=== PATIENT | male | born 1935 | race Caucasian/White ===

== ENCOUNTER 2016-03-14 09:21 | Day surgery (SDC) | payer MEDICARE ==
[2016-03-08 13:32] VITALS: BMI 27.1
[2016-03-14 10:08] VITALS: TEMP 98.1
[2016-03-14] MEDS: LIDOCAINE 1% 20 ML VIAL (10MG/ML) FOR IV START INTRADERMA PRN ×2 (10:19→10:22)
[2016-03-14] MEDS: LACTATED RINGERS 1,000 ML IV SCH ×2 (10:19→10:22)
[2016-03-14] MEDS ORDERED: PROPOFOL 10 MG/ML 20 ML VIAL IV ONE (11:02)
[2016-03-14] MEDS ORDERED: LIDOCAINE 1% INJ 10MG/ML (20 ML MDV) ONE (11:02)
--- NOTE | 2016-03-14 11:47 | P.PCN ---
Date of Procedure: 03/14/16 Procedure(s) Performed: Procedure: 1. Esophagogastroduodenoscopy and biopsy. 2. Total colonoscopy. Preoperative diagnosis: History of Da Silva's esophagus and screening for colon neoplasia.. Postoperative diagnosis: 1. Small sliding hiatal hernia with no obvious esophagitis or Da Silva's esophagus. 2. Mild antral gastritis and mild duodenitis. 3. Sigmoid diverticulosis with no evidence of acute diverticulitis , strictures, polyps or cancer. Preparation: HalfLytely prep. Sedation: Was provided by anesthesia. Brief clinical history: The patient is a 81-year-old male who is referred for this evaluation for screening because of history of Da Silva's esophagus and history of polyps. His last colonoscopy may have been 12-13 years ago and his upper endoscopy was several years ago. The patient has been doing well with no significant complaints. Procedure: With the patient on his left lateral decubitus position and after informed consent and adequate sedation, I passed the Olympus-GIF 160 video upper endoscope through the cricopharyngeus down the esophagus. GE junction was around 40 cm from the incisors and there was a small sliding hiatal hernia. There was no erosions, ulcers, strictures or any evidence of Da Silva's esophagus. It is possible that his Da Silva's has regressed since his last evaluation. The endoscope was then passed into the stomach which was insufflated with air and inspected in detail including the retroflex view in the cardia. There was some mottling and erythema in the antrum but no ulcers or erosions. Pyloric channel did not show any ulcers. Duodenal bulb, post bulbar area and descending duodenum showed minimal erythema and minimal friability. I obtained biopsies from the antrum then the endoscope was withdrawn and I proceeded with the colonoscopy. Perianal area did not show any fissures or fistulas. There were no masses felt on digital rectal examination. The Olympus CFQ 160L video colonoscope was then inserted in the rectum in the usual fashion and advanced to the cecum. There were several small diverticular orifices seen scattered in the sigmoid but I saw no evidence of acute diverticulitis or strictures. No polyps or tumors were seen. I retroflexed endoscope in the rectum before the endoscope was withdrawn. Low-grade internal hemorrhoids were noted but there was no bleeding. The patient tolerated the procedure well. Plan: The patient was reassured. Will await biopsy results. Discussed dietary measures. At his age I did not recommend further surveillance or screening and that can be kept as a contingency based on his course. He will follow up with you as planned.
[2016-03-14 12:05] VITALS: BP 120/77; PULSE 58; RESP 18
== END 2016-03-14 12:31 | disposition home or self-care (01) ==
LOC: ORWHC2ENDO 09:21
DX: Z12.11 Encounter for screening for malignant neoplasm of colon (principal); K44.9 Diaphragmatic hernia without obstruction or gangrene; K29.50 Unspecified chronic gastritis without bleeding; K29.80 Duodenitis without bleeding; K57.30 Diverticulosis of large intestine without perforation or abscess without bleeding; Z88.5 Allergy status to narcotic agent; I10 Essential (primary) hypertension; Z85.46 Personal history of malignant neoplasm of prostate; Z79.82 Long term (current) use of aspirin; Z79.899 Other long term (current) drug therapy; Z86.010 Personal history of colon polyps
CPT/HCPCS: 88305; 88342; 43239; J2001; J2704; G0105; 99153

== ENCOUNTER → 2017-03-22 | Outpatient (CLI) | payer MEDICARE ==
--- NOTE | 2017-03-23 13:24 | MR ---
EXAMINATION TYPE: MR brain wo/w con DATE OF EXAM: 03/22/2017 COMPARISON: NONE HISTORY: Retrograde amnesia CONTRAST: Performed utilizing 7 mL intravenous Gadavist gadolinium contrast. TECHNIQUE: Multiplanar, multiecho imaging on a 3.0 Isatu magnet is performed through the brain. Stud y is performed within 24 hours of arrival to the hospital. The craniovertebral junction is normal. The pituitary is normal. Diffusion-weighted imaging is performed. No abnormal hyperintensity is present to suggest an acute i ntracranial infarct or acute ischemic change. There is increased signal within the posterior inferior right cerebellum compatible with prior infarc t.. Ventricular white matter hyperintensity is present compatible with hypervascular ischemic changes . Ventricles are prominent for the patient age. There is milder prominence of the sulci. No temporal ho rn dilatation is evident suggest hydrocephalus. No abnormal enhancement is evident. IMPRESSIONS: 1. Chronic appearing white matter ischemic type changes with atrophy. 2. 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
== END | disposition home or self-care (01) ==
LOC: RADMRIMAIN 09:07
PROVIDERS: ATTEND Family Medicine
DX: G31.9 Degenerative disease of nervous system, unspecified (principal); I63.9 Cerebral infarction, unspecified
CPT/HCPCS: 70553; A9581

== ENCOUNTER 2019-08-30 22:34 | Inpatient (IN) | payer MEDICARE, OTHER ==
[2019-08-30] MEDS ORDERED: SODIUM CHLORIDE 0.9% 500 ML 500 ML IV ONE (23:36)
[2019-08-30 23:49] LABS: Basophils # (A) 0.1 k/uL (0-0.2); Basophils % (A) 0 %; Eosinophils # (A) 0.2 k/uL (0-0.7); Eosinophils % (A) 1 %; HCT 43.9 % (39.0-53.0); HGB 14.6 gm/dL (13.0-17.5); Lymphocytes # (A) 1.4 k/uL (1.0-4.8); Lymphocytes % (A) 6 %; MCHC 33.2 g/dL (31.0-37.0); MCV 93.5 fL (80.0-100.0); Mean Platelet Volume 7.8; Monocytes # (A) 0.7 k/uL (0-1.0); Monocytes % (A) 3 %; Neutrophils # (A) 21.1 k/uL (1.3-7.7); Neutrophils % (A) 90 %; Platelet Count 634 k/uL (150-450); WBC 23.6 k/uL (3.8-10.6)
[2019-08-31 00:22] LABS: Albumin 3.5 g/dL (3.5-5.0); Calcium 10.1 mg/dL (8.4-10.2); Potassium 5.4 mmol/L (3.5-5.1); Total Bilirubin 0.6 mg/dL (0.2-1.3); Total Protein 7.8 g/dL (6.3-8.2)
--- NOTE | 2019-08-31 00:39 | XR ---
EXAMINATION TYPE: XR chest 1V portable DATE OF EXAM: 08/31/2019 COMPARISON: NONE HISTORY: Fall. Pain. TECHNIQUE: Single view FINDINGS: There is some patchy infiltrates in the lower lobes bilaterally. Heart size is normal. Ther e are no hilar masses. Costophrenic angles are clear. Thoracic aorta is atheromatous. Bony thorax is intact. IMPRESSION: Bilateral lower lobe mild pneumonia. No heart failure seen. Normal heart.
--- NOTE | 2019-08-31 00:41 | XR ---
EXAMINATION TYPE: XR pelvis AP view DATE OF EXAM: 08/31/2019 COMPARISON: NONE HISTORY: Fall. Pain. TECHNIQUE: Single view FINDINGS: The pelvic ring is intact. Proximal femurs are intact. There are multiple surgical clips in the pelvis bilaterally. Sacroiliac joints are intact. IMPRESSION: Negative exam. No pelvic fracture seen. No evidence of hip fracture.
--- NOTE | 2019-08-31 00:44 | CT ---
EXAMINATION TYPE: CT brain cspine wo con DATE OF EXAM: 08/31/2019 COMPARISON: None HISTORY: Fall. Pain. CT DLP: mGycm Automated exposure control for dose reduction was used. CT brain without contrast. CT scan cervical spine from the skull base to T1 vertebra without contrast . FINDINGS: There is diffuse cerebral cortical atrophy. There is enlargement of the ventricles. There is moderate patchy hypodensity in the periventricular white matter. There is old cortical infarct involving the medial right cerebellar hemisphere. This measures 2.5 cm. There is no midline shift. There is no sign of intracranial hemorrhage. The calvarium is intact. There is some straightening of the cervical spine. There is mild disc space narrowing at C4-5 C5-6 wi th mild spurring. Facet joints are intact. The skull base is intact. There is no evidence of cervical spine fracture. Prevertebral soft tissues show enlarged air-filled cervical esophagus. There is no e vidence of a soft tissue mass. IMPRESSION: Old right cerebellar hemisphere infarct. Cerebral atrophy and chronic small vessel ischemia. No thomas e compared to old MR scan of 03/22/2017. Mild spondylotic changes in the cervical spine. No fracture. Enlarged air-filled esophagus could rela te to esophageal dysfunction.
--- NOTE | 2019-08-31 00:46 | ED ---
General Adult HPI - General Chief complaint: Fall Stated complaint: Fall Time Seen by Provider: 08/30/19 23:02 Source: EMS Mode of arrival: EMS Limitations: altered mental status - History of Present Illness Initial comments: Patient is a pleasantly demented 84-year-old male who presents to the emergency department via ambulance for evaluation after a fall at his [place] [facility]. According to caregivers the patient was attempting to stand, they were assisting him when he fell onto his right side he did not his head he did not lose consciousness and no obvious injuries but per their protocol he was sent here for evaluation. arrived at bedside she has not seen the patient due to isolation precautions due to per coronavirus. expresses concern about a significant weight change and advance meant of his dementia, today he does not even recognize his which prior to coronavirus he could. reports that in early July the patient was hospitalized for pneumonia, his weakness worsened during hospitalization he was discharged in a [place] [facility] and she has not seen him since then. She reports he's had significant weight loss and advancement of his dementia since then. She states that she doesn't know how he could've fallen from standing as he was unable to stand when he was previously in the hospital. - Related Data Home Medications Medication Instructions Recorded Confirmed Aspirin [Adult Low Dose Aspirin EC] 81 mg PO DAILY 03/08/16 03/14/16 Carvedilol 6.25 mg PO BID 03/08/16 03/14/16 DULoxetine HCL [Cymbalta] 60 mg PO DAILY 03/08/16 03/14/16 Donepezil HCl 10 mg PO DAILY 03/08/16 03/14/16 Ibuprofen [Motrin] 800 mg PO Q8HR PRN 03/08/16 03/14/16 Oxybutynin Chloride [Ditropan XL] 10 mg PO DAILY 03/08/16 03/14/16 amLODIPine BESYLATE [Amlodipine 10 mg OP DAILY 03/08/16 03/14/16 Besylate] Allergies Allergy/AdvReac Type Severity Reaction Status Date / Time codeine AdvReac Unknown Verified 03/14/16 10:07 Review of Systems ROS Statement: Those systems with pertinent positive or pertinent negative responses have been documented in the HPI. ROS Other: All systems not noted in ROS Statement are negative. Past Medical History Past Medical History: Cancer, Hypertension, Memory Impairment Additional Past Medical History / Comment(s): PROSTATE CANCER History of Any Multi-Drug Resistant Organisms: None Reported Past Surgical History: Appendectomy, Prostate Surgery Additional Past Surgical History / Comment(s): PROSTATECTOMY. COLONOSCOPY. HX LOW PLATELETS Past Anesthesia/Blood Transfusion Reactions: No Reported Reaction Past Psychological History: Depression Past Alcohol Use History: None Reported Past Drug Use History: None Reported - Past Family History Mother Family Medical History: No Reported History General Exam Limitations: altered mental status (Dementia) General appearance: alert Head exam: Present: atraumatic, normocephalic, other (Temportal wasting) Eye exam: Present: PERRL (Because the patient is A&Ox3, has no focal neurologic deficits, no posterior midline c-spine tenderness to palpation, no evidence of intoxication and has no painful distracting injuries there is no need to obtain radiographic studies to evaluate the cervical spine.). Absent: scleral icterus ENT exam: Present: mucous membranes dry Neck exam: Absent: tenderness Respiratory exam: Absent: respiratory distress Cardiovascular Exam: Present: regular rate GI/Abdominal exam: Present: soft exam: Present: normal inspection Extremities exam: Present: normal capillary refill, other (contracted extremities). Absent: tenderness, pedal edema Neurological exam: Present: alert (at baseline per [place] [facility] staff) Psychiatric exam: Present: other (dementia, does not recognize surroundings or ) Skin exam: Present: warm, dry, intact Course Vital Signs 08/30/19 08/31/19 22:36 01:00 Temperature 97.4 F L Pulse Rate 79 91 Respiratory 18 18 Rate Blood Pressure 124/81 128/73 O2 Sat by Pulse 96 93 L Oximetry Medical Decision Making - Medical Decision Making The patient was seen and evaluated history is obtained from EMS and at bedside 84-year-old male with advancing dementia had a witnessed fall at the [place] [facility] today and was sent to the ER for evaluation Labs and imaging were obtained Head CT pelvis x-ray were unremarkable Chest x-ray concerning for bilateral lower lobe pneumonia, the patient does have a nonproductive cough, patient is too weak to have a very strong cough but does persistently cough in the exam room Labs resulted with leukocytosis, evidence of dehydration with elevated BUNs and creatinines mild hyperkalemia IV fluid rehydration was ordered Antibiotics ordered Plan was discussed with the patient's at bedside who confirms the patient has advanced directives and wouldn't want to be DO NOT RESUSCITATE but does consent to IV antibiotics and hospitalization The patient will be hospitalized for generalized weakness, lower lobe pneumonia, acute kidney injury - Lab Data Result diagrams: 08/30/19 23:34 08/30/19 23:34 Lab Results 08/30/19 08/30/19 08/31/19 Range/Units 23:34 23:34 00:19 WBC 23.6 H (3.8-10.6) k/uL RBC 4.70 (4.30-5.90) m/uL Hgb 14.6 (13.0-17.5) gm/dL Hct 43.9 (39.0-53.0) % MCV 93.5 (80.0-100.0) fL MCH 31.0 (25.0-35.0) pg MCHC 33.2 (31.0-37.0) g/dL RDW 13.0 (11.5-15.5) % Plt Count 634 H (150-450) k/uL Neutrophils % 90 % Lymphocytes % 6 % Monocytes % 3 % Eosinophils % 1 % Basophils % 0 % Neutrophils # 21.1 H (1.3-7.7) k/uL Lymphocytes # 1.4 (1.0-4.8) k/uL Monocytes # 0.7 (0-1.0) k/uL Eosinophils # 0.2 (0-0.7) k/uL Basophils # 0.1 (0-0.2) k/uL Sodium 141 (137-145) mmol/L Potassium 5.4 H (3.5-5.1) mmol/L Chloride 109 H (98-107) mmol/L Carbon Dioxide 22 (22-30) mmol/L Anion Gap 10 mmol/L BUN 68 H (9-20) mg/dL Creatinine 1.76 H (0.66-1.25) mg/dL Est GFR (CKD-EPI)AfAm 41 (>60 ml/min/1.73 sqM) Est GFR (CKD-EPI)NonAf 35 (>60 ml/min/1.73 sqM) Glucose 119 H (74-99) mg/dL Calcium 10.1 (8.4-10.2) mg/dL Total Bilirubin 0.6 (0.2-1.3) mg/dL AST 34 (17-59) U/L ALT 19 (4-49) U/L Alkaline Phosphatase 215 H (38-126) U/L Total Protein 7.8 (6.3-8.2) g/dL Albumin 3.5 (3.5-5.0) g/dL Urine Color Yellow Urine Appearance Clear (Clear) Urine pH 5.0 (5.0-8.0) Ur Specific [place] 1.020 (1.001-1.035) Urine Protein Negative (Negative) Urine Glucose (UA) Negative (Negative) Urine Ketones Negative (Negative) Urine Blood Negative (Negative) Urine Nitrite Negative (Negative) Urine Bilirubin Negative (Negative) Urine Urobilinogen <2.0 (<2.0) mg/dL Ur Leukocyte Esterase Negative (Negative) Disposition Clinical Impression: Pneumonia, Generalized weakness, Cachexia, Fall, Acute kidney injury Disposition: ADMITTED IP TO THIS [facility] Condition: Serious Referrals: Blayne Kramer DO [Primary Care Provider] - 1-2 days
[2019-08-31 00:51] LABS: Appearance,Urine Clear (Clear); Bilirubin,Urine Negative (Negative); Blood,Urine Negative (Negative); Color,Urine Yellow; Glucose,Urine (UA) Negative (Negative); Ketones,Urine Negative (Negative); Leukocyte Esterase,Urine Negative (Negative); Nitrite,Urine Negative (Negative); Protein,Urine Negative (Negative); Urobilinogen,Urine <2.0 mg/dL (<2.0)
[2019-08-31] MEDS ORDERED: SODIUM CHLORIDE 0.9% 500 ML 500 ML IV ONE (01:48)
[2019-08-31] MEDS ORDERED: NALOXONE 0.4 MG/ML 1 ML VIAL IV PRN (02:04)
[2019-08-31] MEDS: SODIUM CHLORIDE 0.9% 1,000 ML IV SCH ×2 (02:46→23:27)
[2019-08-31] MEDS ORDERED: ALBUTEROL NEBULIZED 2.5 MG/3 ML INHALATION PRN (13:14)
[2019-08-31] MEDS ORDERED: ACETAMINOPHEN TAB 325 MG TAB PO PRN (13:14)
--- NOTE | 2019-08-31 13:51 | P.HPIM ---
History of Present Illness 84-year-old male was brought in from [facility] as a patient had a fall. Patient agrees, underwent workup which showed leukocytosis and there is possible pneumonia in both the lungs inferior lung ortiz predominantly in the left lower lung ortiz. Patient apparently has a dementia which has been getting worse patient use to recognize his before his admission to subacute [facility]. Ht patient cannot recognize his either patient is presently alert oriented 1 be drowsy and about to go to bed. Unable to obtain any kind of history from the patient patient doesn't have any fever. Review of Systems Unable to obtain due to his clinical condition Past Medical History Past Medical History: Cancer, COPD, Dementia, Hypertension, Memory Impairment, Pneumonia Additional Past Medical History / Comment(s): Pt had recentl pn eumonia/sepsis/weakness 07/2019. Other hx: Prostate cancer with surgery, Da Silva's esophagus, duodenitis, mild gastritis, hiatal hernia, diverticular disease, hemorrhoids, past dysphagia/dilations/peg tube since removed, ITP, idiopathic purpura, low platlets, R pneumothorax, nephrolithiasis/ureteral stents, occasional lower back pain History of Any Multi-Drug Resistant Organisms: None Reported Past Surgical History: Appendectomy, Orthopedic Surgery, Prostate Surgery Additional Past Surgical History / Comment(s): Prostatectomy, EGDs/dilations, colonoscopy, peg tube-since removed, L knee arthroscopy, ureteral stents, bilateral cataract removals Past Anesthesia/Blood Transfusion Reactions: No Reported Reaction Smoking Status: Light tobacco smoker - Past Family History Mother Family Medical History: No Reported History Father Family Medical History: Myocardial Infarction (IA) Additional Family Medical History / Comment(s): Father from a IA at the age of 52 yrs. Medications and Allergies Home Medications Medication Instructions Recorded Confirmed Type DULoxetine HCL [Cymbalta] 60 mg PO DAILY 03/08/16 08/31/19 History Oxybutynin Chloride [Ditropan XL] 10 mg PO DAILY 03/08/16 08/31/19 History Acetaminophen Tab [Tylenol] 650 mg PO Q6H PRN MDD 3 GM 08/31/19 08/31/19 History Albuterol Nebulized [Ventolin 2.5 mg INHALATION RT-Q6H PRN 08/31/19 08/31/19 History Nebulized] Carvedilol [Coreg] 3.125 mg PO BID 08/31/19 08/31/19 History LORazepam [Ativan] 1 mg PO BID 08/31/19 08/31/19 History QUEtiapine [SEROquel] 25 mg PO HS 08/31/19 08/31/19 History guaiFENesin [Mucinex] 600 mg PO BID@0800,2000 08/31/19 08/31/19 History Allergies Allergy/AdvReac Type Severity Reaction Status Date / Time codeine Allergy Unknown Verified 08/31/19 06:41 Physical Exam Vitals: Vital Signs Temp Pulse Pulse Resp BP BP Pulse Ox 08/31/19 07:00 98.5 F 90 18 138/91 96 08/31/19 06:00 97.8 F 96 18 125/66 94 L 08/31/19 01:00 91 18 128/73 93 L 08/30/19 22:36 97.4 F L 79 18 124/81 96 Intake and Output 08/30/19 08/31/19 08/31/19 22:59 06:59 14:59 Output Total 20 Balance -20 Output: Urine 20 Straight 20 Other: Voiding Method Diaper Weight 55.792 kg 55.792 kg PHYSICAL EXAMINATION: GENERAL: The patient is drowsy and oriented x1, not in any acute distress. Thin built HEENT: Pupils are round and equally reacting to light. EOMI. No scleral icterus. No conjunctival pallor. Normocephalic, atraumatic. No pharyngeal erythema. No thyromegaly. Dry mucous membranes CARDIOVASCULAR: S1 and S2 present. No murmurs, rubs, or gallops. PULMONARY: Chest is clear to auscultation, no wheezing or crackles. ABDOMEN: Soft, nontender, nondistended, normoactive bowel sounds. No palpable organomegaly. MUSCULOSKELETAL: No joint swelling or deformity. EXTREMITIES: No cyanosis, clubbing, or pedal edema. NEUROLOGICAL: Gross neurological examination did not reveal any focal deficits. SKIN: No rashes. Results CBC & Chem 7: 08/30/19 23:34 08/30/19 23:34 Labs: Abnormal Lab Results - Last 24 Hours (Table) 08/30/19 08/30/19 Range/Units 23:34 23:34 WBC 23.6 H (3.8-10.6) k/uL Plt Count 634 H (150-450) k/uL Neutrophils # 21.1 H (1.3-7.7) k/uL Potassium 5.4 H (3.5-5.1) mmol/L Chloride 109 H (98-107) mmol/L BUN 68 H (9-20) mg/dL Creatinine 1.76 H (0.66-1.25) mg/dL Glucose 119 H (74-99) mg/dL Alkaline Phosphatase 215 H (38-126) U/L Thrombosis Risk Factor Assmnt - Choose All That Apply Any of the Below Risk Factors Present?: Yes Each Factor Represents 1 point: Abnormal pulmonary function (COPD), Serious lung disease incl. pneumonia (< 1month) Other Risk Factors: Yes Each Risk Factor Represents 2 Points: Malignancy Each Risk Factor Represents 3 Points: Age 75 years or older Other congenital or acquired thrombophilia - If yes, enter type in comment: No Thrombosis Risk Factor Assessment Total Risk Factor Score: 7 Thrombosis Risk Factor Assessment Level: High Risk Assessment and Plan Plan: -Possible left encephalopathy may be metabolic encephalopathy and toxic encephal opathy: There is a possibility of pneumonia patient was started on an antibiotics will be discontinued patient is significantly dehydrated clinically because of poor Intake because of advancing dementia patient was started on IV fluids. -Possible pneumonia for which patient was started on Rocephin and azithromycin. -Dementia either vascular senile dementia: Worsening dementia. Supportive care avoid benzo resumes, barbiturates and opiates, anticollagen medications. Ativan will be discontinued. Patient will be started on Seroquel on as-needed basis for agitation if at all he is any during this hospital physician. -COPD without any acute exacerbation -Hypertension -Prostate cancer status post surgery -Depression Due to prophylaxis as the penis heparin GI prophylaxis with Pepcid
[2019-08-31] MEDS: METOPROLOL TARTRATE 25 MG TAB PO SCH (20:28)
[2019-08-31] MEDS: HEPARIN SODIUM,PORCINE 5,000 UNIT/ML 1 ML VIAL SQ SCH (20:49)
[2019-08-31] MEDS: FAMOTIDINE 20 MG TAB PO SCH (20:49)
[2019-08-31] MEDS: guaiFENesin 600 MG TABLET.ER PO SCH (20:49)
[2019-09-01] MEDS: QUEtiapine 25 MG TAB PO PRN ×2 (01:14→21:01)
[2019-09-01 07:16] LABS: HGB 12.1 gm/dL (13.0-17.5); MCH 29.3 pg (25.0-35.0); MCHC 31.7 g/dL (31.0-37.0); MCV 92.2 fL (80.0-100.0); Mean Platelet Volume 7.8; Platelet Count 512 k/uL (150-450); RBC 4.12 m/uL (4.30-5.90); RDW 13.4 % (11.5-15.5); WBC 11.5 k/uL (3.8-10.6)
[2019-09-01 07:22] LABS: African American GFR (CKD) >90 (>60 ml/min/1.73 sqM); Anion Gap 6 mmol/L; Blood Urea Nitrogen 33 mg/dL (9-20); Calcium 8.2 mg/dL (8.4-10.2); Carbon Dioxide 18 mmol/L (22-30); Chloride 122 mmol/L (98-107); Glucose 83 mg/dL (74-99); Non-African American GFR(CKD) 79 (>60 ml/min/1.73 sqM); Potassium 4.5 mmol/L (3.5-5.1); Sodium 146 mmol/L (137-145)
[2019-09-01] MEDS: METOPROLOL TARTRATE 25 MG TAB PO SCH ×2 (07:59→21:01)
[2019-09-01] MEDS: guaiFENesin 600 MG TABLET.ER PO SCH ×2 (07:59→21:01)
[2019-09-01] MEDS: FAMOTIDINE 20 MG TAB PO SCH ×2 (07:59→21:01)
[2019-09-01] MEDS: DULoxetine HCL 60 MG CAPSULE.DR PO SCH (07:59)
[2019-09-01] MEDS: AZITHROMYCIN 500 MG TAB PO SCH (08:00)
[2019-09-01] MEDS: HEPARIN SODIUM,PORCINE 5,000 UNIT/ML 1 ML VIAL SQ SCH ×2 (08:02→21:01)
[2019-09-01] MEDS: SODIUM CHLORIDE 0.9% 1,000 ML IV SCH (08:03)
[2019-09-01 11:19] VITALS: BMI 19.3
--- NOTE | 2019-09-01 12:38 | CDI ---
Documentation Clarification Form Date: 09/01/2019 11:58:56 AM From: Bridget Mohamud RN CCDS Admit Date: 08/31/2019 02:04:00 AM Patient Name: Fly Nguyen Visit Number: [id number] Discharge Date: ATTENTION: The Clinical Documentation Specialists (CDI) and [facility] Coding Staff appreciate your assistance in clarifying documentation. Please respond to the clarification below the line at the bottom and electronically sign. The CDI & [facility] Coding staff will review the response and follow-up if needed. Please note: Queries are made part of the Legal Health Record. If you have any questions, please contact the author of this message via ITS. Dr. Emelyn Quinones 08/30 in ED Note reported significant weight loss and advancement of his dementia History/Risk Factors: 84-year-old male presents to the ED from [facility] after a fall per protocol. Being treated for Pneumonia with Rocephin Iv and Zithromax Po. Medical History Dementia; COPD; HTN and Memory Impairment Clinical Indicators: 08/29 Labs: Wbc 23.6; Plt 634; K 5.4; BUN 68; Cr 1.76; Glucose 119; Current BMI: 19.3 Height 5 ft 7in 08/31 Nursing assessment: Muscle tone weak, movement normal, muscle strength fair. Activity: Bedrest, HOB 08/31 Nutrition Assessment: From Dietary Consult Intake: Poor; Percent Consumed 0-25%; Dysphagia Level 1: pureed, aspiration precautions, no straws; 1:1 supervision. Physical findings: Underweight Nutritional Diagnosis intake: inadequate oral intake. Clinical Diagnosis: Underweight related to poor oral intake with advanced age, dementia, BMI 19.3 kg/m2. 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 Supplements: Magic Cups TID Kcal /Serving 290. Protein serving 9 Diet Dysphagia I, pureed, Texture modified diet, Monitor po intake. In your professional opinion, can you please clarify if these findings signify one of the following conditions? Severe Protein-Calorie Malnutrition Other condition, please specify Unable to determine (Last Revision: August 2018) Moderate Protein-Calorie Malnutrition MTDD
--- NOTE | 2019-09-01 13:24 | XR ---
EXAMINATION TYPE: XR chest 1V DATE OF EXAM: 09/01/2019 HISTORY: Shortness of breath. COMPARISON: 08/30/2019 TECHNIQUE: Single view of the chest is submitted. FINDINGS: Demonstrated are scattered senescent parenchymal change. Basilar infiltrates persist. Correlate for pneumonia. The heart is stable. Hilar and mediastinal structures are within normal limits. Degenerative changes are seen of the dorsal spine. IMPRESSION: 1. Basilar infiltrates persist. Correlate for pneumonia.
--- NOTE | 2019-09-01 15:18 | P.PN ---
Subjective 84-year-old male was brought in from retirement as a patient had a fall. Patient agrees, underwent workup which showed leukocytosis and there is possible pneumonia in both the lungs inferior lung ortiz predominantly in the left lower lung ortiz. Patient apparently has a dementia which has been getting worse patient use to recognize his before his admission to subacute [facility]. Ht patient cannot recognize his either patient is presently alert oriented 1 be drowsy and about to go to bed. Unable to obtain any kind of history from the patient patient doesn't have any fever. 09/01/2019 Patient has advanced dementia patient has not been eating or drinking a patient prognosis is extremely poor and his white blood cell count and dehydration improved patient is a hyponatremic and hyperchloremia because of which IV fluids will be discontinued but patient is expected to get dehydrated and expected to have frequent pneumonias down the line area and same thing was discussed with the family by his . Will consult hospice which is a more appropriate care for him. Patient had agitation episodes still has a sitter. Patient is on Seroquel on as-needed basis will increase the dose of Seroquel to 37.5 as needed for agitation. Patient does open eyes does see is doesn't answer much of the questions. Review of systems unable to obtain due to his clinical condition All inpatient medications were reviewed and appropriate changes in these medications as dictated in the interval history and assessment and plan. Objective - Vital Signs Vital signs: Vital Signs Temp 97.9 F 09/01/19 07:00 Pulse 73 09/01/19 07:00 Resp 17 09/01/19 08:00 BP 145/74 09/01/19 07:00 Pulse Ox 90 L 09/01/19 07:00 Intake & Output 08/31/19 09/01/19 09/01/19 18:59 06:59 18:59 Intake Total 400 Balance 400 Weight 55.792 kg 55.792 kg Intake: Intake, IV Titration 400 Amount cefTRIAXone 1 gm In 400 Sodium Chloride 0.9% 50 ml @ 100 mls/hr IVPB Q24HR [facility] Rx#:[id number] Other: Voiding Method Diaper Diaper Diaper # Voids 3 2 - Labs CBC & Chem 7: 09/01/19 06:50 09/01/19 06:50 Labs: Abnormal Lab Results - Last 24 Hours (Table) 07/15/20 07/15/20 Range/Units 06:50 06:50 WBC 11.5 H (3.8-10.6) k/uL RBC 4.12 L (4.30-5.90) m/uL Hgb 12.1 L (13.0-17.5) gm/dL Hct 38.0 L (39.0-53.0) % Plt Count 512 H (150-450) k/uL Sodium 146 H (137-145) mmol/L Chloride 122 H (98-107) mmol/L Carbon Dioxide 18 L (22-30) mmol/L BUN 33 H (9-20) mg/dL Calcium 8.2 L (8.4-10.2) mg/dL
[2019-09-01] MEDS ORDERED: SODIUM CHLORIDE 0.45% 1,000 ML IV SCH (16:00)
[2019-09-02] MEDS: FAMOTIDINE 20 MG TAB PO SCH (07:25)
[2019-09-02] MEDS: DULoxetine HCL 60 MG CAPSULE.DR PO SCH (07:25)
[2019-09-02] MEDS: guaiFENesin 600 MG TABLET.ER PO SCH (07:25)
[2019-09-02] MEDS: AZITHROMYCIN 500 MG TAB PO SCH (07:25)
[2019-09-02] MEDS: METOPROLOL TARTRATE 25 MG TAB PO SCH (07:26)
[2019-09-02] MEDS: HEPARIN SODIUM,PORCINE 5,000 UNIT/ML 1 ML VIAL SQ SCH (07:26)
--- NOTE | 2019-09-02 12:50 | P.DS ---
Providers Date of admission: 08/31/19 02:04 Expected date of discharge: 09/02/19 Attending physician: Moses Nuñez MD Primary care physician: Blayne Kramer [facility] Course: Final diagnosis -Altered mental status is mostly secondary to advancing dementia rather than delirium although patient may have a mild component of metabolic and toxic encephalopathy. -Covid 19 ruled out, testing was negative -Moderate protein calorie malnutrition due to poor oral intake with a BMI of 19.3 -Dehydration and acute renal failure -Possible pneumonia -Dementia either vascular or senile dementia: Worsening dementia -COPD without any acute exacerbation -Hypertension -Prostate cancer status post surgery -Depression -DVT prophylaxis -GI prophylaxis Discharge disposition Patient is being discharged in a stable condition with guarded prognosis to [facility] as he is a resident there. Patient will follow-up with Dr. Kramer upon discharge. Patient will continue with a short course of oral antibiotics in the form of Zithromax along with Ceftin for the next 3 days to complete a course. Family to discuss in the outpatient setting about possible hospice. Total time taken is 35 minutes. History of present illness This is an 84-year-old male who was [facility] and was being closely monitored. Patient was also seen and evaluated for possible pneumonia in both lungs predominantly on the left lower lung and was started on antibiotics. Patient will continue a short course of oral antibiotics for the next 3 days to complete the course. Patient also had some leukocytosis which is improving. Family to discuss about possible hospice in the outpatient setting. Patient was having some intermittent periods of agitation and will continue his Seroquel as needed for this. Patient's oral intake continues to be very poor and needs constant encouragement along with 1:1 supervision and aspiration precautions. Head of the bed should be elevated 45. Currently no reports of chest pain, worsening shortness of breath, or palpitations. Patient is afebrile. No reports of nausea or vomiting and patient is tolerating diet. Patient has poor oral intake and needs encouragement frequently with meals. During hospitalization patient underwent Covid 19 testing and was negative. Guarded prognosis. On exam vital signs are stable. Temp is 97.8F, pulse is 57, respirations are 16, blood pressure is 125/68, oxygen saturation is 94% on room air. Cardio S1, S2 are muffled. Respiratory shows diminished breath sounds at the bases with no wheezing or rhonchi noted. Abdomen is soft and nontender. Nervous system shows mild diffuse weakness. Please refer to medication reconciliation sheet for a list of medications. Patient Condition at Discharge: Fair Plan - Discharge Summary Discharge Rx Participant: No New Discharge Prescriptions: New Cefuroxime Axetil [Ceftin] 500 mg PO BID 3 Days #6 tab Metoprolol Tartrate [Lopressor] 25 mg PO BID tab Famotidine [Pepcid] 20 mg PO BID tab Azithromycin [Zithromax] 500 mg PO DAILY 4 Days #4 tab Continue Oxybutynin Chloride [Ditropan XL] 10 mg PO DAILY DULoxetine HCL [Cymbalta] 60 mg PO DAILY Albuterol Nebulized [Ventolin Nebulized] 2.5 mg INHALATION RT-Q6H PRN PRN Reason: Shortness Of Breath Acetaminophen Tab [Tylenol] 650 mg PO Q6H PRN MDD 3 GM PRN Reason: Pain guaiFENesin [Mucinex] 600 mg PO BID@799,1999 QUEtiapine [SEROquel] 25 mg PO HS Discontinued LORazepam [Ativan] 1 mg PO BID Carvedilol [Coreg] 3.125 mg PO BID Discharge Medication List DULoxetine HCL [Cymbalta] 60 mg PO DAILY 03/08/16 [History] Oxybutynin Chloride [Ditropan XL] 10 mg PO DAILY 03/08/16 [History] Acetaminophen Tab [Tylenol] 650 mg PO Q6H PRN MDD 3 GM 08/31/19 [History] Albuterol Nebulized [Ventolin Nebulized] 2.5 mg INHALATION RT-Q6H PRN 08/31/19 [History] QUEtiapine [SEROquel] 25 mg PO HS 08/31/19 [History] guaiFENesin [Mucinex] 600 mg PO BID@799,199908/31/19 [History] Azithromycin [Zithromax] 500 mg PO DAILY 4 Days #4 tab 09/02/19 [Rx] Cefuroxime Axetil [Ceftin] 500 mg PO BID 3 Days #6 tab 09/02/19 [Rx] Famotidine [Pepcid] 20 mg PO BID tab 09/02/19 [Rx] Metoprolol Tartrate [Lopressor] 25 mg PO BID tab 09/02/19 [Rx] Follow up Appointment(s)/Referral(s): Blayne Kramer DO [Primary Care Provider] - 1-2 days [employer] Shila Geller, [NON-STAFF] - As Needed Activity/Diet/Wound Care/Special Instructions: Patient is returning to [facility] Activity as tolerated Continue current diet of dysphagia level I pured with no straws, one to one supervision, aspiration precautions Keep head of the bed elevated 45 Family to discuss further with hospice in the outpatient setting Discharge Disposition: TRANSFER TO SNF/ECF
[2019-09-02 14:06] VITALS: BP 122/80; PULSE 54; RESP 18; TEMP 98
== END 2019-09-02 15:45 | DRG 193 ==
LOC: EC 22:34 → 4SSUR 08-31 02:04
PROVIDERS: ADMIT Internal Medicine; ATTEND Internal Medicine
DX: J18.9 Pneumonia, unspecified organism (principal); G92 Toxic encephalopathy; E44.0 Moderate protein-calorie malnutrition; R64 Cachexia; N17.9 Acute kidney failure, unspecified; D69.3 Immune thrombocytopenic purpura; E87.0 Hyperosmolality and hypernatremia; F03.91 Unspecified dementia, unspecified severity, with behavioral disturbance; J44.0 Chronic obstructive pulmonary disease with (acute) lower respiratory infection; Z68.1 Body mass index [BMI] 19.9 or less, adult; Z11.59 Encounter for screening for other viral diseases; E87.8 Other disorders of electrolyte and fluid balance, not elsewhere classified; Z66 Do not resuscitate; F32.9 Major depressive disorder, single episode, unspecified; I10 Essential (primary) hypertension; E87.5 Hyperkalemia; E86.0 Dehydration; K22.70 Barrett's esophagus without dysplasia; R13.10 Dysphagia, unspecified; K57.90 Diverticulosis of intestine, part unspecified, without perforation or abscess without bleeding; K44.9 Diaphragmatic hernia without obstruction or gangrene; F17.200 Nicotine dependence, unspecified, uncomplicated; W19.XXXA Unspecified fall, initial encounter; Y92.129 Unspecified place in nursing home as the place of occurrence of the external cause; Z79.899 Other long term (current) drug therapy; Z85.46 Personal history of malignant neoplasm of prostate; Z90.49 Acquired absence of other specified parts of digestive tract; Z96.0 Presence of urogenital implants; Z90.79 Acquired absence of other genital organ(s); Z87.442 Personal history of urinary calculi; Z98.42 Cataract extraction status, left eye; Z87.01 Personal history of pneumonia (recurrent); Z98.41 Cataract extraction status, right eye; Z98.890 Other specified postprocedural states; Z87.19 Personal history of other diseases of the digestive system; Z88.5 Allergy status to narcotic agent; Z82.49 Family history of ischemic heart disease and other diseases of the circulatory system
CPT/HCPCS: 36415; 70450; 71045; 72125; 72170; 80048; 80053; 81003; 85025; 85027; 99285